=== PATIENT | female | born 1990 | race African-American/Black ===

== ENCOUNTER 2016-06-20 02:53 | Emergency (ER) | payer SELFPAY ==
--- NOTE | 2016-06-20 07:58 | ER Document Report ---
ED Hand/Wrist Injury - General Mode of Arrival: Ambulatory Information source: Patient TRAVEL OUTSIDE OF THE [place] IN LAST 30 DAYS: No - HPI Injury to: Thumb - right Onset: Yesterday Context: Other - see notes above - General Chief Complaint: Thumb Injury Stated Complaint: SWOLLEN FINGER NO KNOWN INJURY Notes: 26-year-old female presents to the ED complaining of swelling and pain to the right distal thumb that started yesterday. 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 Patient does report that she bites her nails. Patient denies history of diabetes. Patient states that she does not have a primary care provider. (TANIKA BURRELL) - Related Data Allergies/Adverse Reactions: No Known Allergies Allergy (Verified 06/22/16 21:12) Past Medical History - General Information source: Patient - Social History Smoking Status: Unknown if Ever Smoked Family History: CAD, CVA, DM, Hyperlipidemia, Hypertension, Malignancy Patient has suicidal ideation: No Patient has homicidal ideation: No Endocrine Medical History: Denies: Hx Diabetes Mellitus Type 2 Renal/ Medical History: Denies: Hx Peritoneal Dialysis Surgical Hx: Negative - Immunizations Immunizations up to date: Yes Hx Diphtheria, Pertussis, Tetanus Vaccination: Yes Review of Systems - Review of Systems Constitutional: No symptoms reported EENT: No symptoms reported Cardiovascular: No symptoms reported Respiratory: No symptoms reported Gastrointestinal: No symptoms reported Genitourinary: No symptoms reported Female Genitourinary: No symptoms reported Musculoskeletal: No symptoms reported Skin: See HPI, Other - swelling and erythema to the right thumb Hematologic/Lymphatic: No symptoms reported Neurological/Psychological: No symptoms reported -: Yes All other systems reviewed and negative Physical Exam - General General appearance: Appears well In distress: None - HEENT Head: Normocephalic, Atraumatic Eyes: Normal Extraocular movements intact: Yes Pupils: PERRL - Respiratory Respiratory status: No respiratory distress Breath sounds: Normal - Cardiovascular Rhythm: Regular Heart sounds: Normal auscultation - Abdominal Inspection: Normal Distension: No distension Tenderness: Nontender - Back Back: Normal - Extremities General upper extremity: Normal ROM. No: Normal inspection - see hand exam below General lower extremity: Normal inspection, Normal ROM Hand: Other - Tenderness to palpation along the edge of the right thumb that is erythematous and swollen and is consistent with paronychia. No abscess or cellulitis.. No: Normal - Neurological Neuro grossly intact: Yes Cognition: Normal Orientation: AAOx4 Laila Coma Scale Eye Opening: Spontaneous [place] Coma Scale Verbal: Oriented [place] Coma Scale Motor: Obeys Commands Laila Coma Scale Total: 15 Speech: Normal - Psychological Associated symptoms: Normal affect, Normal mood - Skin Skin Temperature: Warm Skin Moisture: Dry Skin Color: Normal Course - Re-evaluation Re-evalutation: 07/09/16 15:42 patient with paronychia not requiring drainage. no secondary cellulitis, concerns for osteomyelitis, or systemic complaints. will dc warm soaks antibiotics pcp follow up in 12-24 hours and discussed reasons for ed return sooner (SAJI MOTA) - Vital Signs Vital signs: Temp Pulse Resp BP Pulse Ox 98.4 F 69 16 130/86 H 100 06/20/16 08:08 06/20/16 08:08 06/20/16 08:08 06/20/16 08:08 06/20/16 08:08 Discharge - Discharge Clinical Impression: acute paronychia Condition: Stable Disposition: HOME, SELF-CARE Additional Instructions: Paronychia You have an infection between the nail and the surrounding skin, called a paronychia. The germs infect the area after a minor skin injury, such as a hangnail. This infection is treated by releasing the pus. This is usually done by the skin from the nail. If the infection has spread underneath the nail, partial removal of the nail may be necessary. Hot-soak the area three or four times daily. Antibiotics are often given, but are not always necessary. Healing takes about a week. If pain or swelling becomes severe or if you develop fever or chills, call the doctor or return for re-examination. Prescriptions: Clindamycin HCl 300 mg PO BID #14 capsule Referrals: [facility] [Provider Group] - Follow up in 3-5 days (Call for appointment to be seen rechecked and reevaluated in 2-3 days return for increasing worsening or new symptoms) Scribe Attestation: 06/20/16 08:02 I personally performed the services described in the documentation reviewed the documentation recorded by my scribe in my presence and it accurately and completely records my words and actions (SAJI MOTA) Scribe Documentation - Scribe Written by Scribe:: Karlene Del Real, 06/20/2016 1200 acting as scribe for :: Terrance
[2016-06-20 08:14] VITALS: BP 130/86
== END 2016-06-20 08:08 | disposition home or self-care (01) ==
LOC: ER 02:53
DX: L03.011 Cellulitis of right finger (principal); M79.89 Other specified soft tissue disorders
CPT/HCPCS: 99283

== ENCOUNTER 2016-06-22 18:59 | Emergency (ER) | payer SELFPAY ==
--- NOTE | 2016-06-22 21:00 | ER Document Report ---
ED Hand/Wrist Injury - General Chief Complaint: L thumb pain, swelling Stated Complaint: POSSIBLE FINGER INFECTION Time seen by provider: 20:55 Mode of Arrival: Ambulatory Information source: Patient Notes: This is a 26-year-old female with no past medical history that presents for follow-up of left thumb infection. Patient was diagnosed with a paronychia and started on antibiotics a few days ago. The patient still taking antibiotics. 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 Since getting off of work and taking the gloves off, the patient states that the finger is actually improved. The patient denies any fever. TRAVEL OUTSIDE OF THE [place] IN LAST 30 DAYS: No - HPI Injury to: Thumb Onset: Last week Where: Home Timing: Constant Quality of pain: Dull Severity: Mild Pain Level: 1 Context: denies: Became dizzy/fainted, Blow, Burn, Crush, Fall, High pressure injection, Human/animal bite, Laceration, Seizure, Swelling, Other - Related Data Allergies/Adverse Reactions: No Known Allergies Allergy (Verified 06/22/16 21:12) Past Medical History - General Information source: Patient - Social History Smoking Status: Never Smoker Cigarette use (# per day): No Chew tobacco use (# tins/day): No Frequency of alcohol use: None Drug Abuse: None Lives with: Family Family History: CAD, CVA, DM, Hyperlipidemia, Hypertension, Malignancy Patient has suicidal ideation: No Patient has homicidal ideation: No - Medical History Medical History: Negative Endocrine Medical History: Denies: Hx Diabetes Mellitus Type 2 Renal/ Medical History: Denies: Hx Peritoneal Dialysis Surgical Hx: Negative - Immunizations Immunizations up to date: Yes Hx Diphtheria, Pertussis, Tetanus Vaccination: Yes Review of Systems - Review of Systems Constitutional: denies: Chills, Fever EENT: No symptoms reported Cardiovascular: No symptoms reported Respiratory: No symptoms reported Gastrointestinal: No symptoms reported Genitourinary: No symptoms reported Female Genitourinary: No symptoms reported Musculoskeletal: See HPI Skin: See HPI Hematologic/Lymphatic: No symptoms reported Neurological/Psychological: No symptoms reported Physical Exam - Vital signs Vitals: Temp Pulse Resp BP Pulse Ox 97.9 F 78 14 122/52 L 100 06/22/16 21:13 06/22/16 21:13 06/22/16 21:13 06/22/16 21:13 06/22/16 21:13 Notes: Physical exam: GENERAL: 26-year-old female, alert and oriented 3, pleasant, no acute distress HEAD: Atraumatic, normocephalic. EYES: Pupils equal round and reactive to light, extraocular movements intact, sclera anicteric, conjunctiva are normal. ENT: Moist mucous membranes. NECK: Normal range of motion, supple EXTREMITIES: Left hand: The patient does have some swelling and tenderness along the inner aspect of the left thumbnail. There is mild erythema in that area. There is no obvious pus. The pulp is nontender and there is no erythema. There is full range of motion. Cap refill is good. Rest of the fingers are clear. Course - Re-evaluation Re-evalutation: 06/22/16 20:58 I've had a long discussion with the patient. She has a left thumb paronychia. I do not see any evidence of a felon. She is currently on antibiotics and is soaking it. She states that it's actually improved since earlier today when working with gloves on seemed irritated. I have offered her incision and drainage but she is quite hesitant at this time. She is reached a decision to wait a little while longer and to continue soaking and going with the oral antibiotics. I think that is okay as long as she has close follow-up and I will give her the number for hand surgeon follow-up with, alternatively, she can follow-up here if things get worse. I'll give her some pain medicine and I advised her to stay off the line and that the gloves are probably irritating the finger and preventing it from healing. - Vital Signs Vital signs: Temp Pulse Resp BP Pulse Ox 97.9 F 78 14 122/52 L 100 06/22/16 21:13 06/22/16 21:13 06/22/16 21:13 06/22/16 21:13 06/22/16 21:13 Discharge - Discharge Clinical Impression: left thumb paronychia Condition: Stable Disposition: HOME, SELF-CARE Instructions: Paronychia ([facility]) Additional Instructions: As we discussed, continue the current medicines. Continue soaks several times a day. I recommend you not being on the line at work and avoiding gloves (they're too constrictive at this time). Follow-up with the orthopedic doctor as discussed: Call in the morning for follow-up this week. Alternatively, return to the ER if things are getting worse. As we discussed, we may need to perform an incision and drainage at that time. Take Percocet as needed for pain unrelieved by the ibuprofen. The pain medicine you're taking prescribed as a narcotic. There are several important things you should know about this medicine: 1. This medicine contains Tylenol: It is important that you do not take Tylenol (or acetaminophen) while on this medicine. Tylenol is metabolized by the liver and taking too much Tylenol (acetaminophen) can lay to liver damage and even liver failure. 2. Taking narcotics for too long can lead to physical and mental dependence. Take this medicine only if really needed and in the lowest quantity to achieve pain relief. 3. Do not drink alcohol while on this medicine. Alcohol interacts with narcotics and the combination can be dangerous. 4. Do not drive or operate machinery while on this medicine. 5. Narcotics do cause constipation, so drink plenty of fluids and daily stool softeners. Prescriptions: Oxycodone HCl/Acetaminophen [Percocet 5-325 mg Tablet] 1 - 2 tab PO ASDIR PRN # 15 tablet PRN Reason: Referrals: JAN HANNA MD [ACTIVE STAFF] - Follow up tomorrow (Call the office tomorrow for follow-up this week)
[2016-06-22 21:14] VITALS: BP 122/52
== END 2016-06-22 21:14 | disposition home or self-care (01) ==
LOC: ER 18:59
DX: L03.012 Cellulitis of left finger (principal); M79.645 Pain in left finger(s); M79.89 Other specified soft tissue disorders
CPT/HCPCS: 99283

== ENCOUNTER 2016-12-24 22:30 | Emergency (ER) | payer MEDICAID ==
[2016-12-24 22:39] VITALS: BP 122/85
[2016-12-24 22:57] LABS: APPEARANCE,URINE CLOUDY; BILIRUBIN,URINE NEGATIVE (NEGATIVE); GLUCOSE, URINE NEGATIVE (NEGATIVE); KETONES,URINE NEGATIVE (NEGATIVE); LEUKOCYTE ESTERASE,URINE LARGE (NEGATIVE); NITRITE,URINE NEGATIVE (NEGATIVE); PROTEIN,URINE 100 mg/dL (NEGATIVE); URINE SPECIFIC GRAVITY 1.017; UROBILINOGEN,URINE NEGATIVE mg/dL (<2.0)
--- NOTE | 2016-12-24 23:41 | ER Document Report ---
HPI - HPI Pain Level: 3 Notes: Patient is a 26-year-old female who presents to the ED complaining of urinary burning, urgency, frequency, and scant hematuria 2 days. Patient states that she does have some suprapubic pressure and occasionally a right-sided back ache but does not radiate. Patient denies any history of kidney stones in the past. She still eating and drinking without any difficulties. She denies any significant past medical history otherwise or drug allergies. Denies any headache, fever, URI, sore throat, chest pain, palpitations, syncope, cough, shortness of breath, wheeze, dyspnea, abdominal pain, nausea/vomiting/diarrhea, urinary retention, loss of control of bowel or bladder, or rash. - ROS Notes: REVIEW OF SYSTEMS: CONSTITUTIONAL : Denies fever, chills, or sweats. Denies recent illness. EENT: Denies eye, ear, throat, or mouth pain or symptoms. Denies nasal or sinus congestion or discharge. Denies throat, tongue, or mouth swelling or difficulty swallowing. CARDIOVASCULAR: Denies chest pain. Denies palpitations or racing or irregular heart beat. Denies ankle edema. RESPIRATORY: Denies cough, cold, or chest congestion. Denies shortness of breath, difficulty breathing, or wheezing. GASTROINTESTINAL: Denies abdominal pain or distention. Denies nausea, vomiting , or diarrhea. Denies blood in vomitus, stools, or per rectum. Denies black, tarry stools. Denies constipation. GENITOURINARY: see hpi MUSCULOSKELETAL: see hpi SKIN: Denies rash, lesions or sores. NEUROLOGICAL: Denies confusion or altered mental status. Denies passing out or loss of consciousness. Denies dizziness or lightheadedness. Denies headache. Denies weakness or paralysis or loss of use of either side. Denies problems with gait or speech. Denies sensory loss, numbness, or tingling. ALL OTHER SYSTEMS REVIEWED AND NEGATIVE. Dictation was performed using [employer] voice recognition software - REPRODUCTIVE LMP: 12-13-16 Reproductive: REPORTS: : - DERM Skin Color: Normal Past Medical History - Social History Smoking Status: Never Smoker Family History: CAD, CVA, DM, Hyperlipidemia, Hypertension, Malignancy Patient has suicidal ideation: No Patient has homicidal ideation: No Endocrine Medical History: Denies: Hx Diabetes Mellitus Type 2 Renal/ Medical History: Denies: Hx Peritoneal Dialysis - Immunizations Immunizations up to date: Yes Hx Diphtheria, Pertussis, Tetanus Vaccination: Yes Vertical Provider Document - CONSTITUTIONAL Agree With Documented VS: Yes Notes: PHYSICAL EXAMINATION: GENERAL: Well-appearing, well-nourished and in no acute distress. A&Ox4 LUNGS: Breath sounds clear to auscultation bilaterally and equal. No wheezes rales or rhonchi. HEART: Regular rate and rhythm without murmurs, rubs, gallops. ABDOMEN: Soft, nontender, nondistended abdomen. No guarding, no rebound. No masses appreciated. Normal bowel sounds present. No CVA tenderness bilaterally. Musculoskeletal: LE's b/l: FROM to passive/active. Strength 5+/5. Back: FROM. non-tender. no step-offs, erythema, or deformity noted. Extremities: No cyanosis, clubbing, or edema b/l. Peripheral pulses 2+. Capillary refill less than 3 seconds. NEUROLOGICAL: Normal speech, normal gait. Normal sensory, motor exams PSYCH: Normal mood, normal affect. SKIN: Warm, Dry, normal turgor, no rashes or lesions noted. - INFECTION CONTROL TRAVEL OUTSIDE OF THE [place] IN LAST 30 DAYS: No - RESPIRATORY O2 Sat by Pulse Oximetry: 98 Course - Re-evaluation Re-evalutation: 12/24/16 23:39 Patient is an afebrile, well-hydrated, 26-year-old female who presents to the ED with a UTI. Vitals are stable. PE is otherwise unremarkable at this time. See urinalysis results. Urine cultures pending. No other imaging warranted at this time. Patient is able to tolerate p.o. without any difficulties. Low suspicion/risk for acute appendicitis, bowel obstruction, acute cholecystitis, acute cholangitis, perforated diverticulitis, incarcerated hernia, pancreatitis , perforated ulcer, peritonitis, sepsis, pelvic inflammatory disease, ectopic , tubo-ovarian abscess, ovarian torsion, or other systemic emergent condition at this time. Patient is aware that her condition can change from initial presentation and she needs to monitor symptoms closely and seek medical attention if any acute changes. I will send her home with a prescription for Bactrim to take as directed. Conservative measures otherwise for symptoms. Recheck with your PCM in 3-5 days. Return to the ED with any worsening/ concerning symptoms otherwise as reviewed in discharge. Patient is in agreement. - Vital Signs Vital signs: Temp Pulse Resp BP Pulse Ox 98.6 F 99 18 122/85 98 12/24/16 22:35 12/24/16 22:35 12/24/16 22:35 12/24/16 22:35 12/24/16 22:35 - Laboratory Laboratory results interpreted by me: 12/24/16 22:40 Urine Protein 100 H Urine Blood LARGE H Ur Leukocyte Esterase LARGE H Discharge - Discharge Clinical Impression: UTI (urinary tract infection) Qualifiers: Urinary tract infection type: site unspecified Hematuria presence: with hematuria Qualified Code(s): N39.0 - Urinary tract infection, site not specified ; R31.9 - Hematuria, unspecified; R31.9 - Hematuria, unspecified Condition: Stable Disposition: HOME, SELF-CARE Instructions: Trimethoprim-Sulfa ([facility]), Urinary Tract Infection ([facility]) Additional Instructions: Push fluids (i.e. water, cranberry juice) Proper hygenic technique Keep the skin clean Tylenol/ibuprofen as needed May use over the counter AZO for burning with urination Take medications as directed F/u with your PCM in 3-5 days for a recheck Consider consult with a Urologist for ongoing/worsening symptoms. Return to the ED with any worsening symptoms and/or development of fever, headache, chest pain, palpitations, syncope, shortness of breath, trouble breathing, abdominal pain, n/v/d, blood in stool/urine, loss of control of bowel /bladder, urinary retention, or other worsening symptoms that are concerning to you. Prescriptions: Sulfamethoxazole/Trimethoprim [Bactrim Ds Tablet] 1 each PO BID #14 tablet Referrals: [facility] [Provider Group] - Follow up as needed [facility] [Provider Group] - Follow up as needed [facility] [Provider Group] - Follow up as needed
== END 2016-12-25 00:06 | disposition home or self-care (01) ==
LOC: ER 22:30
DX: O23.41 Unspecified infection of urinary tract in pregnancy, first trimester (principal); O26.891 Other specified pregnancy related conditions, first trimester; R31.9 Hematuria, unspecified; Z3A.01 Less than 8 weeks gestation of pregnancy
CPT/HCPCS: 81001; 87086; 87088; 87186; 99283

== ENCOUNTER 2017-07-16 02:05 | Emergency (ER) | payer MEDICAID ==
[2017-07-16] MEDS ORDERED: HYDROCODONE/ACETAMINOPHEN 5-325 MG (6 TAB/ER DISP) PO PRN (04:29)
[2017-07-16] MEDS ORDERED: PENICILLIN V POTASSIUM 500 MG TABLET PO ONE (04:29)
--- NOTE | 2017-07-16 04:32 | ER Document Report ---
ED General - General Chief Complaint: Toothache Stated Complaint: TOOTHACHE Time Seen by Provider: 07/16/17 04:14 Notes: Patient is a 19-year-old female presents with complaint of a toothache over her left lower molar. She has been there for a few days. She has appointment with her dentist on Wednesday. Said the pain is intractable. No difficulty breathing or swallowing. No swelling of the face or swelling below the jaw. No fevers. No other complaints at this time. TRAVEL OUTSIDE OF THE [place] IN LAST 30 DAYS: No - Related Data Allergies/Adverse Reactions: No Known Allergies Allergy (Verified 06/22/16 21:12) Past Medical History - Social History Smoking Status: Never Smoker Chew tobacco use (# tins/day): No Frequency of alcohol use: None Drug Abuse: None Family History: CAD, CVA, DM, Hyperlipidemia, Hypertension, Malignancy Patient has suicidal ideation: No Patient has homicidal ideation: No Endocrine Medical History: Denies: Hx Diabetes Mellitus Type 2 Renal/ Medical History: Denies: Hx Peritoneal Dialysis - Immunizations Immunizations up to date: Yes Hx Diphtheria, Pertussis, Tetanus Vaccination: Yes Review of Systems - Review of Systems Notes: My Normal Review Basic REVIEW OF SYSTEMS: CONSTITUTIONAL : Denies fever, chills, or sweats. Denies recent illness. EENT: Toe pain CARDIOVASCULAR: Denies chest pain. RESPIRATORY: Denies cough, cold, or chest congestion. Denies shortness of breath, difficulty breathing, or wheezing. NEUROLOGICAL: Denies altered mental status or loss of consciousness. Has a mild headache. ALL OTHER SYSTEMS REVIEWED AND NEGATIVE. Physical Exam - Vital signs Vitals: Temp Pulse Resp BP Pulse Ox 98.6 F 78 17 130/105 H 99 07/16/17 02:11 07/16/17 02:11 07/16/17 02:11 07/16/17 02:11 07/16/17 02:11 - Notes Notes: General Appearance: Well nourished, alert, cooperative, no acute distress, moderate obvious discomfort. Vitals: reviewed, See vital signs table. Head: no swelling or tenderness to the head Eyes: PERRL, EOMI, Conjuctiva clear Mouth: No significant dental caries seen. Patient has had multiple teeth pulled. No gingival swelling. No swelling along the jaw or below the mandible. Throat: No tonsillar inflammation, No airway obstruction, No lymphadenopathy Neck: Supple, no neck tenderness, No neck swelling Neuro: speech clear, oriented x 3, normal affect, responds appropriately to questions. Course - Re-evaluation Re-evalutation: 07/16/17 06:[address] patient on penicillin to help treat potential underlying dental infection so that when she sees a dentist on Wednesday hopefully she will get definitive treatment at that time. She has no evidence of dental abscess. She does not have any facial swelling or neck swelling. She has no signs of impending airway compromise. I feel she is safe to be discharged home. I strongly encouraged her return to ER immediately if she has worsening pain, fevers, facial swelling, difficulty breathing, difficulty swallowing, or if she feels unwell. Patient agrees with plan will be discharged home. I did give patient a to go pack of [place] and informed her she cannot take this if she is at work or will be driving. Patient understands this and agrees. Dictation of this chart was performed using voice recognition software; therefore, there may be some unintended grammatical errors. - Vital Signs Vital signs: Temp Pulse Resp BP Pulse Ox 98.1 F 73 16 117/68 99 07/16/17 05:16 07/16/17 05:16 07/16/17 05:16 07/16/17 05:16 07/16/17 05:16 Discharge - Discharge Clinical Impression: Toothache Condition: Good Disposition: HOME, SELF-CARE Instructions: Oral Narcotic Medication ([facility]), Penicillin V K ([facility]) Additional Instructions: Please take the pain medicine only at night when you do not have to go to work. Please take Tylenol and Ibuprofen during the day. Please return to the ER immediately if you have facial swelling, swelling below your jaw, fevers, difficulty swallowing, or if you feel that you are worsening in any way. Prescriptions: Penicillin V Potassium [Penicillin Vk 500 mg Tablet] 500 mg PO BID #14 tablet
[2017-07-16 05:18] VITALS: BP 117/68
== END 2017-07-16 05:16 | disposition home or self-care (01) ==
LOC: ER 02:05
DX: K08.9 Disorder of teeth and supporting structures, unspecified (principal)
CPT/HCPCS: 99282; J3490

== ENCOUNTER 2018-11-13 22:13 | Emergency (ER) | payer SELFPAY ==
[2018-11-13 22:36] VITALS: BP 137/71
[2018-11-13 22:59] LABS: APPEARANCE,URINE CLEAR; BILIRUBIN,URINE NEGATIVE (NEGATIVE); COLOR,URINE STRAW; GLUCOSE, URINE NEGATIVE (NEGATIVE); KETONES,URINE NEGATIVE (NEGATIVE); LEUKOCYTE ESTERASE,URINE LARGE (NEGATIVE); NITRITE,URINE NEGATIVE (NEGATIVE); PROTEIN,URINE NEGATIVE (NEGATIVE); UROBILINOGEN,URINE NEGATIVE mg/dL (<2.0)
[2018-11-13 23:05] LABS: URINE SPECIFIC GRAVITY 1.017
--- NOTE | 2018-11-13 23:29 | ER Document Report ---
ED General - General Chief Complaint: Abdominal Pain Stated Complaint: ABDOMINAL PAIN Time Seen by Provider: 11/13/18 23:07 Notes: Patient is a 28-year-old female that presents to the emergency department for chief complaint of lower abdominal pain. Patient states that the pain started earlier today she describes as a sharp pain, mainly in the middle of her lower abdomen, near the suprapubic area, but does radiate towards the left side as well. She denied any associated fevers, chills, night sweats, nausea, vomiting or abdominal pain. She currently rates the pain as a 3 out of 10 describes as a sharp pain, it was worse earlier in the day. The pain has been constant however she denies any urinary symptoms such as dysuria, hematuria, urinary frequency and denies any vaginal bleeding or discharge. Past Medical History: Ovarian cyst Past Surgical History: Denies surgical history Social History: Denies tobacco, alcohol or drug use. Family History: Reviewed and noncontributory for presenting illness Allergies: Reviewed, see documented allergy list. REVIEW OF SYSTEMS: Other than noted above, the 12 point review of systems was reviewed with the patient and were negative, all pertinent findings are included in the HPI. PHYSICAL EXAMINATION: Vital signs reviewed, nursing noted reviewed. GENERAL: Well-appearing, well-nourished and in no acute distress. HEAD: Atraumatic, normocephalic. EYES: Eyes appear normal, extraocular movements intact, sclera anicteric, conjunctiva are normal. ENT: nares patent, oropharynx clear without exudates. Moist mucous membranes. NECK: Normal range of motion, supple without lymphadenopathy LUNGS: Breath sounds clear to auscultation bilaterally and equal. No wheezes rales or rhonchi. HEART: Regular rate and rhythm without murmurs ABDOMEN: Obese, soft, suprapubic tenderness to palpation, and mild left lower quadrant tenderness to palpation, more in the pelvic region, normoactive bowel sounds. No rebound, guarding, or rigidity. No masses appreciated. EXTREMITIES: Nontender, good range of motion, no pitting or edema. NEUROLOGICAL: No focal neurological deficits. Moves all extremities spontaneously Motor and sensory grossly intact on exam. PSYCH: Normal mood, normal affect. SKIN: Warm, Dry, normal turgor, no rashes or lesions noted on exposed skin TRAVEL OUTSIDE OF THE [place] IN LAST 30 DAYS: No - Related Data Allergies/Adverse Reactions: No Known Allergies Allergy (Verified 11/13/18 22:42) Past Medical History - Social History Smoking Status: Never Smoker Frequency of alcohol use: Social Drug Abuse: None Family History: CAD, CVA, DM, Hyperlipidemia, Hypertension, Malignancy Patient has suicidal ideation: No Patient has homicidal ideation: No Endocrine Medical History: Denies: Hx Diabetes Mellitus Type 2 Renal/ Medical History: Denies: Hx Peritoneal Dialysis - Immunizations Immunizations up to date: Yes Hx Diphtheria, Pertussis, Tetanus Vaccination: Yes Physical Exam - Vital signs Vitals: Temp Pulse Resp BP Pulse Ox 98.7 F 85 17 137/71 H 99 11/13/18 22:28 11/13/18 22:28 11/13/18 22:28 11/13/18 22:28 11/13/18 22:28 Course - Re-evaluation Re-evalutation: Patient seen and examined, vital signs reviewed, and patient's exam she did have some lower abdominal tenderness that seem to be worse on the left compared to the right but also had suprapubic tenderness, transvaginal ultrasound was obtained, did demonstrate a large right ovarian cyst, which is possibly related to the patient's discomfort and pain, her UA also had large leuk esterase, it is possible he has cystitis as well, will treat for UTI as well for 3 days of Keflex, send urine for culture, patient agreeable to this plan of care advised follow-up with [facility], given a copy of the results of her ultrasound, and I did explain the results to her and it is important to have a repeat ultrasound in 6 to 8 weeks which she understood. Laboratory 11/13/18 22:45 Urine Color STRAW Urine Appearance CLEAR Urine pH 6.0 Ur Specific [place] 1.017 Urine Protein NEGATIVE Urine Glucose (UA) NEGATIVE Urine Ketones NEGATIVE Urine Blood NEGATIVE Urine Nitrite NEGATIVE Urine Bilirubin NEGATIVE Urine Urobilinogen NEGATIVE Ur Leukocyte Esterase LARGE H Urine WBC (Auto) 12 Urine RBC (Auto) 2 Squamous Epi Cells Auto 3 Urine Mucus (Auto) RARE Urine Ascorbic Acid NEGATIVE Urine HCG, Qual NEGATIVE Transvaginal US 11/13/18 23:24 IMPRESSION: Complex right ovarian cyst as above. Recommend follow-up ultrasound in 6-12 weeks, as per below. Small amount of free fluid. Recommendations for f/u of ovarian complex cysts (1): Endometrioma: <= 7 cm: US f/u 6-12 wks. If not surgically resected, US f/u annually. >7 cm: Consider MR w/IVC or surgical evaluation. If not surgically resected, US f/u annually. Dermoid: <= 5 cm: MR w/IV contrast. If not surgically resected, US f/u annually. >5 cm: Surgical evaluation. If not surgically resected, MR w/IVC; then US f/u annually Indeterminate cyst - multiple thin <=3 mm septations: Any size in any age: Consider surgical evaluation. Indeterminate cyst - non-hyperechoic nodule w/o blood flow: Any size in any age: Consider MR w/IVC or surgical evaluation. Indeterminate cyst - other, not classic for but suggestive of hemorrhagic cyst, endometrioma or dermoid: Pre-menopause: <= 7 cm: US f/u 6-12 weeks. If unchanged, continue f/u with US or consider MR w/IVC. If these do not confirm endometrioma or dermoid, consider surgical evaluation. >7 cm: Consider MR w/IVC or surgical evaluation. Post-menopause (>=1 year from last menstrual period): Any size: Consider surgical evaluation. Cyst worrisome for malignancy (thick, irregular >=3 mm septations or nodule with blood flow): Any size in any age: Consider surgical evaluation. (1) Recommendations based upon the 2010 SRU Consensus Conference Statement on the Management of Asymptomatic Ovarian and Other Adnexal Cysts Imaged at US: Radiology. 2009;256(3):943-18 copyright 2010 [employer]- All Rights Reserved - Vital Signs Vital signs: Temp Pulse Resp BP Pulse Ox 98.7 F 85 17 137/71 H 99 11/13/18 22:28 11/13/18 22:28 11/13/18 22:28 11/13/18 22:28 11/13/18 22:28 - Laboratory Laboratory results interpreted by me: 11/13/18 22:45 Ur Leukocyte Esterase LARGE H Discharge - Discharge Clinical Impression: Pelvic pain Ovarian cyst Qualifiers: Laterality: right Qualified Code(s): N83.201 - Unspecified ovarian cyst, right side Condition: Stable Disposition: HOME, SELF-CARE Instructions: Ovarian Cyst ([facility]) Additional Instructions: Please follow-up with the [facility] office, call for an appointment to schedule repeat ultrasound in 6 to 8 weeks, please complete the course of antibiotics, and if needed fill the prescription for the Diflucan, which is a medication to treat a yeast infection if one develops. Prescriptions: Fluconazole [Diflucan] 150 mg PO ONCE PRN #1 tablet PRN Reason: yeast infection Cephalexin Monohydrate [Keflex 500 mg Capsule] 500 mg PO BID #6 capsule Referrals: [facility] [Provider Group] - Follow up in 3-5 days
--- NOTE | 2018-11-14 00:15 | RADIOLOGY REPORT (SQ) ---
EXAM DESCRIPTION: US PELVIS TRANSVAGINAL COMPLETED DATE/TME: 11/13/2018 23:24 CLINICAL HISTORY: 28 years, Female, left pelvic pain COMPARISON: None. TECHNIQUE: Transverse and longitudinal transvaginal sonographic images of the pelvis LIMITATIONS: None. FINDINGS: The uterus measures 8.8 x 4.9 x 5.5 cm. The myometrium is homogenous. The endometrium measures 11 mm in thickness. Nabothian cysts are noted. The right ovary measures 3.8 x 3.2 x 2.7 cm. The left ovary measures 3.1 x 2.1 x 2.4 cm. Normal flow to each ovary. There is a 3.0 x 2.8 x 3.5 cm complex right ovarian cyst with areas of increased echogenicity centrally. Small amount of free fluid. IMPRESSION: Complex right ovarian cyst as above. Recommend follow-up ultrasound in 6-12 weeks, as per below. Small amount of free fluid. Recommendations for f/u of ovarian complex cysts (1): Endometrioma: <= 7 cm: US f/u 6-12 wks. If not surgically resected, US f/u annually. >7 cm: Consider MR w/IVC or surgical evaluation. If not surgically resected, US f/u annually. Dermoid: <= 5 cm: MR w/IV contrast. If not surgically resected, US f/u annually. >5 cm: Surgical evaluation. If not surgically resected, MR w/IVC; then US f/u annually Indeterminate cyst - multiple thin <=3 mm septations: Any size in any age: Consider surgical evaluation. Indeterminate cyst - non-hyperechoic nodule w/o blood flow: Any size in any age: Consider MR w/IVC or surgical evaluation. Indeterminate cyst - other, not classic for but suggestive of hemorrhagic cyst, endometrioma or dermoid: Pre-menopause: <= 7 cm: US f/u 6-12 weeks. If unchanged, continue f/u with US or consider MR w/IVC. If these do not confirm endometrioma or dermoid, consider surgical evaluation. >7 cm: Consider MR w/IVC or surgical evaluation. Post-menopause (>=1 year from last menstrual period): Any size: Consider surgical evaluation. Cyst worrisome for malignancy (thick, irregular >=3 mm septations or nodule with blood flow): Any size in any age: Consider surgical evaluation. (1) Recommendations based upon the 2010 SRU Consensus Conference Statement on the Management of Asymptomatic Ovarian and Other Adnexal Cysts Imaged at US: Radiology. 2009;256(3):945-13 copyright 2011 [employer]- All Rights Reserved
[2018-11-14] MEDS ORDERED: CEPHALEXIN 500 MG CAPSULE PO ONE (00:16)
[2018-11-14] MEDS ORDERED: NAPROXEN 250 MG TABLET PO ONE (00:17)
== END 2018-11-14 00:47 | disposition home or self-care (01) ==
LOC: ER 22:13
DX: N83.201 Unspecified ovarian cyst, right side (principal); R10.2 Pelvic and perineal pain; R10.30 Lower abdominal pain, unspecified
CPT/HCPCS: 76830; 81001; 81025; 93976

== ENCOUNTER 2019-01-03 23:38 | Emergency (ER) | payer SELFPAY ==
[2019-01-04] MEDS ORDERED: LIDOCAINE 1%/EPINEPHRINE INJ 20 ML VIAL INJ ONE ×2 (01:44)
--- NOTE | 2019-01-04 01:47 | ER Document Report ---
ED General - General Chief Complaint: Abscess Stated Complaint: POSSIBLE ABSCESS RIGHT ARM Time Seen by Provider: 01/04/19 01:14 Primary Care Provider: [facility] [Provider Group] - Follow up as needed TRAVEL OUTSIDE OF THE [place] IN LAST 30 DAYS: No - HPI Onset: Last week Onset/Duration: Gradual Quality of pain: Achy, Burning Severity: Moderate Pain Level: 3 Context: 29 year old female arrives with right axillary swelling and pain for a few days. No fever or chills and no history of similar previously. Exacerbated by: Denies Relieved by: Denies Similar symptoms previously: No Recently seen / treated by doctor: No - Related Data Allergies/Adverse Reactions: No Known Allergies Allergy (Verified 11/13/18 22:42) Past Medical History - Social History Smoking Status: Never Smoker Chew tobacco use (# tins/day): No Frequency of alcohol use: None Drug Abuse: None Family History: CAD, CVA, DM, Hyperlipidemia, Hypertension, Malignancy Patient has suicidal ideation: No Patient has homicidal ideation: No Endocrine Medical History: Denies: Hx Diabetes Mellitus Type 2 Renal/ Medical History: Denies: Hx Peritoneal Dialysis - Immunizations Immunizations up to date: Yes Hx Diphtheria, Pertussis, Tetanus Vaccination: Yes Review of Systems - Review of Systems Constitutional: No symptoms reported EENT: No symptoms reported Cardiovascular: No symptoms reported Respiratory: No symptoms reported Gastrointestinal: No symptoms reported Genitourinary: No symptoms reported Female Genitourinary: No symptoms reported Musculoskeletal: No symptoms reported Skin: See HPI Hematologic/Lymphatic: No symptoms reported Neurological/Psychological: No symptoms reported Physical Exam - Vital signs Vitals: Temp Pulse Resp BP Pulse Ox 98.6 F 85 20 121/78 100 01/03/19 23:45 01/03/19 23:45 01/03/19 23:45 01/03/19 23:45 01/03/19 23:45 Interpretation: Normal - General General appearance: Appears well, Alert - HEENT Head: Normocephalic, Atraumatic Eyes: Normal Pupils: PERRL - Respiratory Respiratory status: No respiratory distress Chest status: Nontender Breath sounds: Normal Chest palpation: Normal - Cardiovascular Rhythm: Regular Heart sounds: Normal auscultation Murmur: No - Abdominal Inspection: Normal Distension: No distension Bowel sounds: Normal Tenderness: Nontender Organomegaly: No organomegaly - Back Back: Normal, Nontender - Extremities General upper extremity: Normal inspection, Nontender, Normal color, Normal ROM, Normal temperature General lower extremity: Normal inspection, Nontender, Normal color, Normal ROM, Normal temperature, Normal weight bearing. No: Asia's sign - Neurological Neuro grossly intact: Yes Cognition: Normal Orientation: AAOx4 [place] Coma Scale Eye Opening: Spontaneous [place] Coma Scale Verbal: Oriented [place] Coma Scale Motor: Obeys Commands [place] Coma Scale Total: 15 Speech: Normal Motor strength normal: LUE, RUE, LLE, RLE Sensory: Normal - Psychological Associated symptoms: Normal affect, Normal mood - Skin Skin Temperature: Warm Skin Moisture: Dry Skin Color: Normal Course - Re-evaluation Re-evalutation: 01/04/19 02:53 MDM 29 year old with right axillary abcess. Discussed follow up and she expressed understanding. - Vital Signs Vital signs: Temp Pulse Resp BP Pulse Ox 97.7 F 77 16 113/51 L 99 01/04/19 02:37 01/04/19 02:37 01/04/19 02:37 01/04/19 02:37 01/04/19 02:37 Procedures - Incision and Drainage Right Upper Arm Time completed: 02:15 Type: Simple Anesthetic type: 1% Lidocaine mL's of anesthetic: 3 Blade size: 11 I&D procedure: Betadine prep applied, Iodoform packing placed Incision Method: Incision made by scalpel Amount/type of drainage: 15 ml Notes: 01/04/19 02:24 after anethesia stab made with #11 blade and moderate amt of purulent material returned. 1/4 inch iodoform placed in wound. Pt tolerated well without apprarent complications. Discharge - Discharge Clinical Impression: Axillary abscess Condition: Good Disposition: HOME, SELF-CARE Instructions: Abscess ([facility]), Post Incision and Drainage, Trimethoprim-Sulfa ([facility]) Additional Instructions: Have the wound rechecked on Wednesday (01/06/19) as described. Please reutrn here sooner for any problems or any concerns. Prescriptions: Sulfamethoxazole/Trimethoprim [Bactrim Ds Tablet] 1 each PO BID #20 tablet Forms: Return to Work Referrals: [facility] [Provider Group] - Follow up as needed
[2019-01-04 02:38] VITALS: BP 113/51
== END 2019-01-04 03:14 | disposition home or self-care (01) ==
LOC: ER 23:38
PROC: 0H9BXZZ Drainage of Right Upper Arm Skin, External Approach (ICD-10-PCS; principal; 2019-01-03)
DX: L02.413 Cutaneous abscess of right upper limb (principal); M79.601 Pain in right arm; M79.89 Other specified soft tissue disorders
CPT/HCPCS: 99283; 10060; A6266; J3490

== ENCOUNTER 2019-01-06 08:23 | Emergency (ER) | payer SELFPAY ==
[2019-01-06 08:31] VITALS: BP 119/64
--- NOTE | 2019-01-06 09:43 | ER Document Report ---
HPI - HPI Patient complains to provider of: wound recheck Time Seen by Provider: 01/06/19 09:32 Pain Level: 0 Context: 29-year-old female presents the emergency department for a wound recheck. Patient had a right axillary abscess that was incised and drained 3 days ago, packed with iodoform, and covered. Patient was placed on antibiotics. Patient reports no complications other than discomfort of the packing material. No fevers or chills, no nausea or vomiting, no spreading redness at the site, no red streaks, no complaints. - REPRODUCTIVE LMP: 0ct [id number] Reproductive: DENIES: : Past Medical History - Social History Smoking Status: Former Smoker Chew tobacco use (# tins/day): No Frequency of alcohol use: None Drug Abuse: None Family History: CAD, CVA, DM, Hyperlipidemia, Hypertension, Malignancy Patient has suicidal ideation: No Patient has homicidal ideation: No Endocrine Medical History: Denies: Hx Diabetes Mellitus Type 2 Renal/ Medical History: Denies: Hx Peritoneal Dialysis - Immunizations Immunizations up to date: Yes Hx Diphtheria, Pertussis, Tetanus Vaccination: Yes Vertical Provider Document - CONSTITUTIONAL Notes: PHYSICAL EXAMINATION: Reviewed vital signs and charting by RN GENERAL: Alert, interacts well. No acute distress. HEAD: Normocephalic, atraumatic. EYES: Pupils equal and round. Extraocular movements intact. ENT: Oral mucosa moist, tongue midline. NECK: Full range of motion. Trachea midline. EXTREMITIES: Moves all 4 extremities spontaneously. No edema, No cyanosis. PSYCH: Normal affect, normal mood. SKIN: Warm, dry, normal turgor. Abscess present in the right axillary region packed with iodoform dressing, mild purulent drainage seen on the packing material, no surrounding erythema, very mild tenderness when palpating the abscess, no red streaks. - INFECTION CONTROL TRAVEL OUTSIDE OF THE [place] IN LAST 30 DAYS: No Course - Re-evaluation Re-evalutation: 01/06/19 09:42 Wound appears to be healing, packing removed, was able to express a small amount of purulent discharge after the packing was removed. No surrounding erythema or concern for cellulitis, patient is still on antibiotics and was instructed to continue the antibiotics until they are gone. Patient given return precautions. She is stable for discharge. - Vital Signs Vital signs: Temp Pulse Resp BP Pulse Ox 98.4 F 78 20 119/64 96 11/08/19 08:31 01/06/19 08:31 01/06/19 08:31 01/06/19 08:31 01/06/19 08:31 Discharge - Discharge Clinical Impression: Wound check, abscess, Axillary abscess Condition: Good Disposition: HOME, SELF-CARE Instructions: Post Incision and Drainage Additional Instructions: Your wound is healing appropriately. It may still continue to have some discharge coming from it. We did not need to repack it today. As we discussed, you can continue to cover it, you can wash it copiously with soap and water when you take a shower, and please return to the emergency department if you develop fevers, redness or warmth around the site, red streaks moving up your arm, or if you have any other concerns at all.
== END 2019-01-06 10:29 | disposition home or self-care (01) ==
LOC: ER 08:23
DX: L02.411 Cutaneous abscess of right axilla (principal); Z87.891 Personal history of nicotine dependence; E11.9 Type 2 diabetes mellitus without complications
CPT/HCPCS: 99282